=== PATIENT | female | born 1990 | race Caucasian/White ===

== ENCOUNTER 2017-01-06 18:13 | Emergency (ER) | payer BC ==
[2017-01-06] MEDS ORDERED: Ketorolac INJ* 60 MG/2 ML VIAL IM ONE (21:12)
--- NOTE | 2017-01-06 22:07 | ED ---
Headache - HPI Summary HPI Summary: 26 female presents with complaints of headache that has been ongoing for the past couple of months that has worsened over the past week. She has been unable to get relief. States the headache follows "headphone pattern" across her head from side to side. She states it is a pressure that gets worse and sharp at times. She has tried tylenol and ibuprofen without relief. States she has been worked up for headaches and chest pain in the past without any diagnosis. Had a CT scan of her head that showed brain calcifications. She since has had headaches. Has an appointment Friday01/08/17 with her PCP to discuss her headache. She is not on any medications. No PMHx Denies stiff neck, fever/chills , cough, lethargy, and nausea/vomiting. States she sometimes has blurred vision and changes to her hearing. Although she is able to hear and see. Admits to also having memory problems and her emotions changing dramatically and very quickly at times. Denies weakness, slurred speech, drooping of face and fatigue. No recent trauma or head injury. - History Of Current Complaint Chief Complaint: EDHeadache Stated Complaint: HEADACHE Time Seen by Provider: 01/06/17 20:43 Hx Obtained From: Patient Onset/Duration: Gradual Onset, Started weeks ago - months, Still Present, Worse Since - states headache have become more frequent Initially Headache Was: Initial Pain Scale(0-10)= - 7 Timing: Constant Character: Sharp - at times, Pressure, Typical Headache - that she has had for years Location of Headache: Parietal - "following a headphone pattern, like if you were wearing headphones" that sometimes radiates into the frontal and occipatal areas. Aggravating Factor: Nothing Allevating Factors: Rest - sleeping Associated Signs And Symptoms: Visual Changes - "fuzzy at times" - Risk Factors SAH Risk Factors: Negative Meningitis Risk Factors: Negative SDH Risk Factors: Negative Temporal Arteritis Risk Factors: Female, - Allergies/Home Medications Allergies/Adverse Reactions: Allergies Allergy/AdvReac Type Severity Reaction Status Date / Time Acetaminophen [From Percocet] Allergy Vomiting Verified 01/06/17 21:26 Oxycodone [From Percocet] Allergy Vomiting Verified 01/06/17 21:26 Red Dye Allergy Palpitation Verified 01/06/17 21:26 s PMH/Surg Hx/FS Hx/Imm Hx Endocrine/Hematology History: Denies: Hx Diabetes Cardiovascular History: Denies: Hx Hypertension Respiratory History: Denies: Hx Asthma, Hx Chronic Bronchitis Neurological History: Reports: Hx Headaches - Surgical History Surgery Procedure, Year, and Place: none - Immunization History Immunizations Up to Date: Yes Infectious Disease History: No Infectious Disease History: Denies: Traveled Outside the [place] in Last 30 Days - Family History Known Family History: Positive: Hypertension - Social History Alcohol Use: Occasionally Substance Use Type: Reports: None Smoking Status (MU): Light Every Day Tobacco Smoker Review of Systems Constitutional: Negative Positive: Blurred Vision Positive: Other - decreased hearing at times Cardiovascular: Negative Respiratory: Negative Gastrointestinal: Negative Musculoskeletal: Negative Skin: Negative Positive: Headache All Other Systems Reviewed And Are Negative: Yes Physical Exam Triage Information Reviewed: Yes Vital Signs On Initial Exam: Initial Vitals Temp Pulse Resp BP Pulse Ox 98.1 F 85 20 138/82 100 01/06/17 18:16 01/06/17 18:16 01/06/17 18:16 01/06/17 18:16 01/06/17 18:16 Vital Signs Reviewed: Yes Appearance: Positive: Well-Appearing - sitting up in bed, laughing and smiling with boyfriend, No Pain Distress, Well-Nourished Skin: Positive: Warm, Skin Color Reflects Adequate Perfusion, Dry. Negative: Cold, Numb, Cyanosis @ Head/Face: Positive: Normal Head/Face Inspection. Negative: Temporal Artery Tenderness, TMJ Tenderness, Scalp, Cephalohematoma Eyes: Positive: Normal, EOMI, MIKEY, Conjunctiva Clear, Other: - normal visual acuity and fundoscopic exam ENT: Positive: Normal ENT inspection, Hearing grossly normal, Pharynx normal, TMs normal. Negative: Nasal congestion, Tonsillar swelling, Trismus Dental: Negative: Percussion Tenderness @, Cervical Lymphadenopathy Neck: Positive: Supple, Nontender, No Lymphadenopathy. Negative: Nuchal Rigidity - negative kernigs and brudinskis, Tenderness @ Respiratory/Lung Sounds: Positive: Clear to Auscultation, Breath Sounds Present. Negative: Rales, Rhonchi, Wheezes Cardiovascular: Positive: Normal, RRR, Pulses are Symmetrical in both Upper and Lower Extremities Abdomen Description: Positive: Nontender, No Organomegaly, Soft Bowel Sounds: Positive: Present Musculoskeletal: Positive: Normal, Strength/ROM Intact. Negative: Limited @, Interruption @, Abnormal @, Pain @ Neurological: Positive: Normal - memory and concentration intact, Sensory/Motor Intact - sensation intact, Alert, Oriented to Person Place, Time, CN Intact II- III, Reflexes Intact, NV Bundle Intact Distally, Normal Gait, Heel to Toe - normal, Finger to Nose - normal, Facial Symmetry, Speech Normal. Negative: Abnormal Gait, Disoriented, Facial Droop, Slurred Speech Psychiatric: Positive: Normal, Affect/Mood Appropriate - Josue Coma Scale Best Eye Response: 4 - Spontaneous Best Motor Response: 6 - Obeys Commands Best Verbal Response: 5 - Oriented Coma Scale Total: 15 Diagnostics - Vital Signs Vital Signs Temp Pulse Resp BP Pulse Ox 01/06/17 18:19 98.6 F 88 20 138/82 100 01/06/17 18:16 98.1 F 85 20 138/82 100 - Laboratory Lab Statement: Any lab studies that have been ordered have been reviewed, and results considered in the medical decision making process. Re-Evaluation - Re-Evaluation First Eval Re-Evaluation Time: 22:00 Change: Unchanged - patient states the medication did not help her headache however she would like to go home Headache Course/Dx - Course Course Of Treatment: given toradol to help with headache, patient did not have relief however wanted to be d/c. explained and educated on use of CT imagining and how it would not be appropriate to obtain a CT image at this time as her PE findings were normal and due to HPI. Patient has follow up appointment with PCP and possibe neuro referral. Explained imaging may be needed then. No urgent findings requiring CT at this time. No neuro deficits. Patient was educated on worsening signs and symptoms and reminded to attent her PCP. Also requested a work note. Fluids, rest and naproxen was precribed. Recommend benedryl at night when having headaches. - Diagnoses Differential Diagnosis/HQI/PQRI: CVA, TIA, Sinus Headache, Temporal Arteritis, Tension Headache, Viral Syndrome Provider Diagnoses: Headache - Physician Notifications Discussed Care Of Patient With: Dr Mcnulty Discharge - Discharge Plan Condition: Stable Disposition: HOME Prescriptions: Naproxen TAB* [Naprosyn 375 mg TAB*] 375 mg PO BID #25 tab Patient Education Materials: Acute Headache (ED) Forms: *Work Release Referrals: Non Staff,Doctor [Primary Care Provider] - Additional Instructions: Take prescribed medication to help with headache. Drink plenty of fluids and rest. Try taking benedryl at bedtime to help with headache and resting. Follow up with your primary care doctor at your appointment on Friday for further imaging/evaluation. If you develop signs and symptoms of vomiting, worsening head pain, loss of vision or new symptoms please seek medical attention promptly.
[2017-01-06 22:19] VITALS: BP 132/66
== END 2017-01-06 22:16 | disposition home or self-care (01) ==
LOC: ED 18:13
DX: R51 Headache (principal); H53.8 Other visual disturbances; F17.210 Nicotine dependence, cigarettes, uncomplicated
CPT/HCPCS: 96372; 99282; J1885

== ENCOUNTER 2017-11-02 16:16 | Inpatient (IN) | payer BC ==
--- NOTE | 2017-11-02 16:55 | HP ---
General Information - General Information Maternal Age: 27 Grav: 3 Para: 2 SAB: 0 IEA: 0 Estimated Due Date: 11/12/17 Determined By: LMP Gestational Age in Weeks and Days: 38 Weeks and 4 Days Maternal Blood Type and Rh: A Positive - Results this Serology/RPR Result: Non-Reactive Rubella Result: Immune HBsAg Result: Negative HIV Result: Negative GBS Culture Result: Negative Past Medical History Delivery History: Hx Uncomplicated Vaginal Delivery - X2 2009, 2014 Pertinent Past Medical History: Non-Contributory Pertinent Past Surgical History: See Records - bunionectomies Pertinent Family History: Non-Contributory - Antepartal Records Antepartal Records: Reviewed, Complicated by: - Baby was breech @34 weeks, then flipped. Confirmed vertex by sono today. Review of Systems Constitutional: Uncomfortable CV Complaint: No Respiratory: Shortness of Breath: No Gastrointestinal: No Nausea/Vomiting, Normal Bowel Movement Genitourinary: No Dysuria, No Bleeding, No Leaking Fluid Musculoskeletal: Contractions Neurological: No Headache, No Visual Changes Movement: Normal Exam Allergies/Adverse Reactions: Allergies acetaminophen [From Percocet] Allergy (Verified 11/02/17 16:54) Vomiting oxycodone [From Percocet] Allergy (Verified 11/02/17 16:54) Vomiting red dye Allergy (Verified 11/02/17 16:54) Palpitations - Measurements Height: 5 ft 5 in Weight: 211 lb Weight in lbs: 211 Body Mass Index (BMI): 35.1 Pre- Weight: 185 lb Weight Gained This : 26 lbs and 0 ozs - Exam Abdomen: No Upper Quadrant Pain Breast: Breast Exam Deferred Extremities: No Edema Heart: Normal Rhythm/Heart Sounds HEENT: No Significant Findings Lungs: Clear Bilaterally Rectal: Rectal Exam Deferred Reflexes: DTR 2+, - - no clonus - Cervical Exam 7cm/90/-1 vertex, bulging bag - Abdominal Exam Abdomen Exam: Non-Tender, Fundal Height Consistent with Dates Abdomen Exam Comment: EFW 8-8.5lb - Membranes Membrane Status: Intact - Ultrasound/Biophysical Profile Ultrasound Status: Bedside Exam - Confirm vertex EFM Findings - External Monitor Findings Baseline Heart Rate: 135 External Monitor Findings: Accelerations Present, No Pattern of Variable or Late Decelerations, Variability Moderate Contractions: Regular, Strong, 45-90 Seconds
[2017-11-02] MEDS ORDERED: fentaNYL* 50 MCG/ML 2 ML VIAL (100 MCG VIAL) ONE (17:09)
[2017-11-02] MEDS ORDERED: Lidocaine 2% EPI 1:200000 MPF* 20 ML VIAL ONE (17:10)
[2017-11-02 17:28] LABS: Hematocrit 35 % (35-47); Mean Corpuscular HGB Conc 31 g/dl (31-36); Mean Corpuscular Hemoglobin 23 pg (27-31); Mean Corpuscular Volume 74 fL (80-97); Mean Platelet Volume 10 um3 (7.4-10.4); Platelet Count 165 10^3/ul (150-450); Red Blood Count 4.75 10^6/ul (4.0-5.4); Red Cell Distribution Width 16 % (10.5-15); White Blood Count 14.6 10^3/ul (3.5-10.8)
[2017-11-02] MEDS ORDERED: Dibucaine 1% 28.35 GM TUBE PR PRN (17:54)
[2017-11-02] MEDS ORDERED: Witch Hazel PAD* JAR TOPICAL PRN (17:54)
[2017-11-02] MEDS ORDERED: Glycerin ADULT SUPP PR PRN (17:54)
[2017-11-02] MEDS ORDERED: Acetaminophen TAB* 325 MG PO PRN (17:54)
[2017-11-02 18:31] LABS: ABS Basophils 0 10^3/ul (0-0.2); ABS Eosinophils 0.1 10^3/ul (0-0.6); ABS Lymphocytes 2.3 10^3/ul (1.0-4.8); ABS Monocytes 0.9 10^3/ul (0-0.8); ABS Neutrophils 11.3 10^3/ul (1.5-7.7); ABS Nucleated RBC 0 10^3/ul; Eosinophil % 0.4 % (0-6); Lymphocyte % 15.5 % (25-47); Nucleated Red Blood Cells % 0
[2017-11-02] MEDS: Ibuprofen TAB* 600 MG PO PRN (19:05)
[2017-11-02] MEDS ORDERED: Simethicone TAB* 80 MG TAB.CHEW PO SCH (21:00)
[2017-11-02] MEDS ORDERED: Docusate CAP* 100 MG PO SCH (21:00)
[2017-11-03] MEDS: Ibuprofen TAB* 600 MG PO PRN ×2 (03:37→09:16)
[2017-11-03 06:23] LABS: ABS Basophils 0 10^3/ul (0-0.2); ABS Eosinophils 0.1 10^3/ul (0-0.6); ABS Lymphocytes 1.8 10^3/ul (1.0-4.8); ABS Monocytes 0.8 10^3/ul (0-0.8); ABS Neutrophils 7.6 10^3/ul (1.5-7.7); ABS Nucleated RBC 0 10^3/ul; Eosinophil % 0.9 % (0-6); Hematocrit 28 % (35-47); Lymphocyte % 17.2 % (25-47); Mean Corpuscular HGB Conc 32 g/dl (31-36); Mean Corpuscular Hemoglobin 24 pg (27-31); Mean Corpuscular Volume 73 fL (80-97); Mean Platelet Volume 9 um3 (7.4-10.4); Nucleated Red Blood Cells % 0.1; Platelet Count 111 10^3/ul (150-450); Red Blood Count 3.81 10^6/ul (4.0-5.4); Red Cell Distribution Width 16 % (10.5-15); White Blood Count 10.3 10^3/ul (3.5-10.8)
[2017-11-03 08:09] VITALS: BP 127/87
[2017-11-03] MEDS ORDERED: Ferrous Gluconate TAB* 324 MG TAB PO SCH (09:00)
== END 2017-11-03 18:20 | disposition home or self-care (01) | DRG 560 ==
LOC: MCHOBOUT 16:16 → MCHOB 16:37
PROVIDERS: ADMIT Midwife; ATTEND Midwife
PROC: 10E0XZZ Delivery of Products of Conception, External Approach (ICD-10-PCS; principal; 2017-11-02)
PROC: 10907ZC Drainage of Amniotic Fluid, Therapeutic from Products of Conception, Via Natural or Artificial Opening (ICD-10-PCS; 2017-11-02)
DX: O69.81X0 Labor and delivery complicated by cord around neck, without compression, not applicable or unspecified (principal); O99.344 Other mental disorders complicating childbirth; D64.9 Anemia, unspecified; O36.63X0 Maternal care for excessive fetal growth, third trimester, not applicable or unspecified; O70.0 First degree perineal laceration during delivery; O90.81 Anemia of the puerperium; Z3A.38 38 weeks gestation of pregnancy; Z37.0 Single live birth; F41.8 Other specified anxiety disorders; Z88.5 Allergy status to narcotic agent; Z91.048 Other nonmedicinal substance allergy status
CPT/HCPCS: 36415; 85025; 86850; 86900; 86901; A9270-GY; J3010

== ENCOUNTER 2017-12-27 18:32 | Emergency (ER) | payer BC ==
[2017-12-27 18:41] VITALS: BP 135/83
--- NOTE | 2017-12-27 19:27 | UC ---
Complaint Female HPI - HPI Summary HPI Summary: 1) vulvar itching, discharge, raw-feeling consistent with previous yeast infections starting 2 days ago. Used a 1-day monistat treatment yesterday, is feeling improved (but not all the way resolved) today. 2) last night noticed ST and felt hot, temp was in the high 99s. Denies cough or trouble breathing, does have very minimal runny nose. - History Of Current Complaint Chief Complaint: UCGU Stated Complaint: ELEVATED TEMP, IRRITATION GENTIAL AREA Time Seen by Provider: 12/27/17 18:57 Hx Obtained From: Patient Hx Last Menstrual Period: 01/2017 ?: No - 8 weeks PP, Onset/Duration: Gradual Onset, Lasting Days Timing: Constant Severity Initially: Mild Severity Currently: Moderate Pain Intensity: 2 Character: Dull, Burning Aggravating Factor(s): Movement Alleviating Factor(s): Position Associated Signs And Symptoms: Positive: Vaginal Discharge - Allergies/Home Medications Allergies/Adverse Reactions: Allergies Allergy/AdvReac Type Severity Reaction Status Date / Time red dye Allergy Palpitation Verified 12/27/17 18:42 s acetaminophen [From Percocet] AdvReac Vomiting Verified 12/27/17 18:42 oxycodone [From Percocet] AdvReac Vomiting Verified 12/27/17 18:42 PMH/Surg Hx/FS Hx/Imm Hx Previously Healthy: Yes - Surgical History Surgical History: None Surgery Procedure, Year, and Place: none - Family History Known Family History: Positive: Hypertension - Social History Lives: With Family Alcohol Use: None Substance Use Type: None Smoking Status (MU): Never Smoked Tobacco - Immunization History Most Recent Influenza Vaccination: n/a Most Recent Pneumonia Vaccination: n/a Review of Systems Constitutional: Fatigue Skin: Negative Eyes: Negative ENT: Sore Throat, Nasal Discharge Respiratory: Negative Cardiovascular: Negative Gastrointestinal: Negative Genitourinary: Vaginal/Penile Itching, Vaginal/Penile Discharge, Vaginal/Penile Tenderness Motor: Negative Neurovascular: Negative Musculoskeletal: Negative Neurological: Negative Psychological: Negative Is Patient Immunocompromised?: No All Other Systems Reviewed And Are Negative: Yes Physical Exam Triage Information Reviewed: Yes Appearance: Well-Appearing, No Pain Distress, Well-Nourished Vital Signs: Initial Vital Signs Temp 99.1 F 12/27/17 18:38 Pulse 98 05/12/18 18:38 Resp 18 12/27/17 18:38 BP 135/83 12/27/17 18:38 Pulse Ox 100 12/27/17 18:38 Vital Signs Reviewed: Yes Eye Exam: Normal Eyes: Positive: Conjunctiva Clear ENT: Positive: Hearing grossly normal, TMs normal. Negative: Pharynx normal - possible tiny ulcerations on sofe palate?, Pharyngeal erythema Neck exam: Normal Neck: Positive: Supple, Nontender, No Lymphadenopathy Respiratory Exam: Normal Respiratory: Positive: Chest non-tender, Lungs clear, Normal breath sounds, No respiratory distress, No accessory muscle use Cardiovascular Exam: Normal Cardiovascular: Positive: RRR, No Murmur Pelvic Exam: Positive: Discharge - yellow, thick, Lesions - fissures, erosions on inflamed external vulva. No ulcerations, Other - speculum exam not performed due to pt discomfort. Negative: External Exam Normal Neurological Exam: Normal Neurological: Positive: Alert Psychological Exam: Normal Skin Exam: Normal Complaint Female Dx - Differential Dx/Diagnosis Provider Diagnoses: yeast vulvovaginitis. sore throat, likely viral Discharge - Sign-Out/Discharge Documenting (check all that apply): Discharge/Admit/Transfer - Discharge Plan Condition: Stable Disposition: HOME Prescriptions: Fluconazole 150 MG (NF) [Diflucan 150 mg (NF)] 150 mg PO ONCE #1 tab Patient Education Materials: Yeast Infection (ED), Upper Respiratory Infection (ED) Referrals: No Primary Care Phys,NOPCP [Primary Care Provider] - Additional Instructions: Testing pending. You can take a 3-day topical (vaginal cream or suppositories) course of antifuncal medicine as well as this pill. Your sore throat and viral symptoms should resolve on their own. Sometimes it is only mild symptoms for a few days, sometimes it can take 2-3 weeks to fully work through. If you develop prolonged fever, severe pain, or trouble breathing , get rechecked again right away. - Billing Disposition and Condition Condition: STABLE Disposition: HOME
--- NOTE | 2017-12-29 15:22 | UC ---
- Progress Note Progress Note: Culture with positive gardnerlla - Flagyl 500mg BID for 1 week sent Discharge - Sign-Out/Discharge Documenting (check all that apply): Post-Discharge Follow Up - Discharge Plan Condition: Stable Disposition: HOME Prescriptions: Fluconazole 150 MG (NF) [Diflucan 150 mg (NF)] 150 mg PO ONCE #1 tab metroNIDAZOLE [Flagyl] 500 mg PO BID #14 tablet Patient Education Materials: Upper Respiratory Infection (ED), Yeast Infection (ED) Referrals: No Primary Care Phys,NOPCP [Primary Care Provider] - Additional Instructions: Testing pending. You can take a 3-day topical (vaginal cream or suppositories) course of antifuncal medicine as well as this pill. Your sore throat and viral symptoms should resolve on their own. Sometimes it is only mild symptoms for a few days, sometimes it can take 2-3 weeks to fully work through. If you develop prolonged fever, severe pain, or trouble breathing , get rechecked again right away. - Billing Disposition and Condition Condition: STABLE Disposition: HOME
== END 2017-12-27 19:38 | disposition home or self-care (01) ==
LOC: UCEAST 18:32
DX: B37.3 Candidiasis of vulva and vagina (principal); J02.9 Acute pharyngitis, unspecified; R53.83 Other fatigue; R09.81 Nasal congestion; Z88.6 Allergy status to analgesic agent; Z88.5 Allergy status to narcotic agent
CPT/HCPCS: 87480; 87491; 87510; 87591; 87651; 87660; 99212; G0463

== ENCOUNTER 2018-02-20 08:54 | Day surgery (SDC) | payer BC ==
[~2018-02-20 08:54] MED LIST: Buffered Lidocaine 0.9% SYRIN* 5 ML/SYR SYRINGE INTRADERM ONE
[2018-02-20 09:41] LABS: ABS Basophils 0 10^3/ul (0-0.2); ABS Eosinophils 0.1 10^3/ul (0-0.6); ABS Lymphocytes 1.7 10^3/ul (1.0-4.8); ABS Monocytes 0.3 10^3/ul (0-0.8); ABS Neutrophils 2.3 10^3/ul (1.5-7.7); ABS Nucleated RBC 0 10^3/ul; Eosinophil % 2.3 % (0-6); Hematocrit 39 % (35-47); Hemoglobin 12.8 g/dl (12.0-16.0); Lymphocyte % 38.5 % (25-47); Mean Corpuscular HGB Conc 33 g/dl (31-36); Mean Corpuscular Hemoglobin 25 pg (27-31); Mean Corpuscular Volume 77 fL (80-97); Mean Platelet Volume 8.9 um3 (7.4-10.4); Nucleated Red Blood Cells % 0.1; Platelet Count 174 10^3/ul (150-450); Red Blood Count 5.07 10^6/ul (4.00-5.40); Red Cell Distribution Width 14 % (10.5-15); White Blood Count 4.4 10^3/ul (3.5-10.8)
[2018-02-20] MEDS ORDERED: Lidocaine 2% PF * 5 ML VIAL ONE (10:47)
[2018-02-20] MEDS ORDERED: Propofol* 10 MG/ML 20 ML BTL IV PUSH ONE (10:47)
[2018-02-20] MEDS ORDERED: Bupivacaine 0.25% W/EPI* 10 ML SDV ONE (11:03)
[2018-02-20] MEDS ORDERED: Midazolam* 1 MG/ML 2 ML VIAL (2 MG) ONE (11:08)
[2018-02-20] MEDS ORDERED: fentaNYL* 50 MCG/ML 5 ML VIAL (250 MCG VIAL) ONE (11:08)
[2018-02-20] MEDS ORDERED: Scopolamine 1.5 mg* PATCH ONE (11:12)
[2018-02-20] MEDS ORDERED: DiMENhydriNATE IV* 50 MG/ML VIAL IV PUSH PRN (11:39)
[2018-02-20] MEDS ORDERED: Naloxone* 0.4 MG/ML 1 ML VIAL IV PRN (11:39)
[2018-02-20] MEDS ORDERED: Ondansetron INJ* 2 MG/ML VIAL ONE (11:40)
[2018-02-20] MEDS ORDERED: Ketorolac INJ* 30 MG/ML 1 ML VIAL ONE (11:40)
[2018-02-20] MEDS ORDERED: Dexamethasone IV* 4 MG/ML 1 ML (4 MG) ONE (11:40)
[2018-02-20] MEDS ORDERED: Bupivacaine 0.5% PF 10 ML VIAL INJ ONE (11:46)
[2018-02-20] MEDS ORDERED: Succinylcholine* 20 MG/ML 10 ML VIAL ONE (12:08)
[2018-02-20] MEDS ORDERED: Glycopyrrolate IV* 0.2 MG/ML 1 ML VIAL ONE (12:10)
[2018-02-20] MEDS ORDERED: fentaNYL* 50 MCG/ML 2 ML VIAL (100 MCG VIAL) ONE ×3 (12:43→13:10)
[2018-02-20] MEDS: fentaNYL* 50 MCG/ML 2 ML VIAL (100 MCG VIAL) IV PRN ×5 (12:44→13:11)
[2018-02-20] MEDS ORDERED: Acetaminophen TAB* 325 MG ONE (13:02)
[2018-02-20] MEDS ORDERED: HYDROmorphone INJ* 0.5 MG/0.5 ML SYRINGE ONE (13:26)
[2018-02-20 14:03] VITALS: BP 115/73
--- NOTE | 2018-02-21 04:13 | OP ---
OPERATIVE REPORT: DATE OF OPERATION: 02/20/18 DATE OF : 89 SURGEON: Joss Longoria MD ANESTHESIOLOGIST: Dr. Dixon. ANESTHESIA: General. PRE-OP DIAGNOSIS: Satisfied parity. POST-OP DIAGNOSIS: Satisfied parity. OPERATIVE PROCEDURE: Laparoscopic bilateral tubal ligation with bipolar. ESTIMATED BLOOD LOSS: Minimal. URINE OUTPUT: 200 cc. IV FLUIDS: 1000 cc lactated Ringer's. MATERIAL TO LABS: None. INDICATIONS: This patient was a 27-year-old 3, para 3, recently , who desired permanent sterilization. She was extensively counseled regarding her options and she desired to proceed with a tubal ligation. She was extensively counseled and consent was signed. FINDINGS: Normal appearing tubes and ovaries. Uterus was slightly irregularly shaped, likely from small fibroids. COMPLICATIONS: None. DESCRIPTION OF THE PROCEDURE: The risks, benefits, and alternatives were described to the patient, and informed consent was obtained. The patient was taken to the operating room with IV running where general anesthesia was induced and found to be adequate. The patient was prepped and draped in normal- sterile fashion in the low lithotomy position in [facility]. A time-out was performed. The bladder was emptied. A bivalve speculum was placed in the vagina and a Hulka tenaculum was placed through the cervix into the uterus. The speculum was then removed. Attention was then turned to the abdomen. 0.5% Marcaine was then injected into the skin of the umbilicus as well as 2-cm above the pubic symphysis. A 5 mm skin incision was made with a scalpel in the umbilicus. A 5mm bladeless trocar was then inserted through the incision and into the peritoneal cavity without difficulty. The skin was elevated using penetrating towel clamps. Once the trocar was in the abdominal cavity, the abdomen was insufflated with carbon dioxide gas to a maximum pressure of 15 mmHg. Using the camera, the area below the trocar placement was carefully inspected and there was no evidence of trauma or bleeding. The patient was placed in Trendelenburg position. A second 5mm incision was placed 2 cm above the pubic symphysis in a transverse fashion. A 5-mm blunt trocar was placed through this incision and into the abdominal cavity without difficulty. Using the Hulka tenaculum for manipulation, the uterus was elevated and well visualized. The structures appeared normal. A bipolar Kleppinger device was prepared and then used to thoroughly coagulate several segments of both tubes. A meter was used to ensure full coagulation was confirmed. The case was then completed. The trocars were removed from the abdomen and the gas was allowed to escape. The skin was reapproximated using 4- 0 Monocryl in a subcuticular stitch, and the incisions were then overlaid with Dermabond skin adhesive. The tenaculum was then removed from the cervix as well , and there was only light bleeding from the vagina at that time. The patient was returned to the supine position and allowed to awaken. The patient tolerated the procedure well. Sponge, lap, and needle counts were correct x2. [id number]/[facility] #: [id number] MTDD
== END 2018-02-20 14:37 | disposition home or self-care (01) ==
LOC: OR 08:54
PROVIDERS: ATTEND Obstetrics & Gynecology
DX: Z30.2 Encounter for sterilization (principal); F41.8 Other specified anxiety disorders; Z87.891 Personal history of nicotine dependence
CPT/HCPCS: 36415; 81025; 85025; 86850; 86900; 86901; A9270-GY; J0330; J1100; J1170; J1885; J2250; J2405; J2704; J3010

== ENCOUNTER 2018-11-13 09:02 | Day surgery (SDC) | payer BC ==
--- NOTE | 2018-10-30 07:02 | HP ---
HISTORY AND PHYSICAL: DATE OF ADMISSION/SURGERY: 11/13/18 DATE OF OFFICE VISIT: 10/29/18 SURGEON: Stella Demarco MD * (DICTATED BY ERNESTINA GOTTLIEB) PROCEDURE: Left wrist ganglion cyst excision. CHIEF COMPLAINT: Left wrist pain. HISTORY OF PRESENT ILLNESS: Lashay is a 28-year-old female with a ganglion cyst of her left dorsal wrist. She has elected to have this removed. PAST MEDICAL HISTORY: Denies. PAST SURGICAL HISTORY: Right bunionectomy and tubal ligation. CURRENT MEDICATIONS: None. ALLERGIES: PERCOCET causes vomiting and RED DYE. FAMILY HISTORY: Diabetes and cancer. SOCIAL HISTORY: She is a 28-year-old female. She lives with her fiance and children. She occasionally smokes approximately half-a-pack a week and denies use of drugs or alcohol. REVIEW OF SYSTEMS: A complete 14-point review of systems was reviewed with the patient. It was all negative or noncontributory. She denies history of DVT, PE , hepatitis, HIV, or anesthesia problems. PHYSICAL EXAMINATION GENERAL: She is well developed, well nourished, in no acute distress. VITAL SIGNS: She stands 66 inches tall, weighs 220 pounds. Her blood pressure is 122/78 and her heart rate is 76. HEENT: Normocephalic, atraumatic. NECK: Supple. No palpable lymph nodes. PULMONARY: The lungs are clear to auscultation bilaterally. CARDIO: Regular rate and rhythm. Strong S1, S2. ABDOMEN: Soft, nontender, nondistended. NEUROLOGICAL: She is alert and oriented x3. MUSCULOSKELETAL: Left upper extremity: The skin is intact. There are no open wounds or abrasions. There is a palpable dorsal wrist ganglion cyst, which is mildly tender to palpation. She has full range of motion of the left wrist. She has a 2+ palpable pulse and intact sensation. ASSESSMENT AND PLAN: Lashay is a 28-year-old female with a ganglion cyst of the left dorsal wrist. She has elected to have an excision of the left wrist ganglion cyst. The surgery is scheduled for 11/13/[address] Demarco discussed the risks and benefits of the surgery at today's visit and all of her questions were answered. She will follow up with Dr. Demarco 7 to 10 days after the surgery. ERNESTINA GOTTLIEB [id number]/[facility] #: [id number] LIZZIE
[~2018-11-13 09:02] MED LIST changes: -Buffered Lidocaine 0.9% SYRIN* 5 ML/SYR SYRINGE INTRADERM ONE; +Buffered Lidocaine 1% SYRIN* 1 ML/SYRINGE INTRADERM ONE; +Lactated Ringers 1000 ML Bag* 1,000 ML IV SCH; +Lidocaine 1% INJ* 10 MG/ML 30 ML SDV ONE
[2018-11-13] MEDS ORDERED: fentaNYL* 50 MCG/ML 2 ML VIAL (100 MCG VIAL) ONE (10:52)
[2018-11-13] MEDS ORDERED: Midazolam* 1 MG/ML 2 ML VIAL (2 MG) ONE (10:52)
[2018-11-13] MEDS ORDERED: Acetaminophen TAB* 325 MG PO PRN (11:28)
[2018-11-13] MEDS ORDERED: Naloxone* 0.4 MG/ML 1 ML VIAL IV PRN (11:28)
[2018-11-13] MEDS ORDERED: fentaNYL* 50 MCG/ML 2 ML VIAL (100 MCG VIAL) IV PRN (11:28)
[2018-11-13] MEDS ORDERED: Levalbuterol 0.63MG/3ML NEB* UNIT OF USE INH PRN (11:28)
[2018-11-13] MEDS ORDERED: Ondansetron INJ* 2 MG/ML VIAL IV PRN (11:28)
[2018-11-13] MEDS ORDERED: DiMENhydriNATE IV* 50 MG/ML VIAL IV PUSH PRN (11:28)
[2018-11-13] MEDS ORDERED: Ketorolac INJ* 30 MG/ML 1 ML VIAL ONE (11:32)
[2018-11-13] MEDS ORDERED: Propofol* 10 MG/ML 20 ML BTL ONE (11:32)
[2018-11-13] MEDS ORDERED: Lidocaine 2% PF * 5 ML VIAL ONE (11:32)
[2018-11-13 12:00] VITALS: BP 113/67
--- NOTE | 2018-11-13 14:02 | OP ---
DATE OF OPERATION: 11/13/18 [facility] DATE OF : [birth year] SURGEON: Stella Demarco MD DINING ROOM BUSSER: ERNESTINA Estevez ANESTHESIA: Local MAC. PRE-OP DIAGNOSIS: Left dorsal wrist ganglion. POST-OP DIAGNOSIS: Left dorsal wrist ganglion. OPERATIVE PROCEDURE: Removal of left dorsal wrist ganglion. ESTIMATED BLOOD LOSS: Zero. TOURNIQUET TIME: Approximately 15 minutes. INDICATIONS FOR PROCEDURE: Lashay is a 28-year-old female who has a painful mass on the dorsal aspect of her left wrist. She presents for removal. DESCRIPTION OF PROCEDURE: The patient was brought to the operating room, was given a sedation anesthetic and a local infiltration of 10 cc of 1% plain lidocaine overlying the left dorsal wrist mass. The skin of her left hand and forearm was prepped and draped in the usual sterile fashion. The hand and forearm were exsanguinated and the tourniquet elevated to 250 mmHg. A transverse incision was made centered over the mass. We dissected through the subcutaneous tissue. There was some tenosynovitis surrounding the extensor tendons and this was debrided. The tendons were then retracted revealing a broad-based cystic mass overlying the scapholunate ligament of the wrist joint. The mass and a portion of the wrist joint capsule were removed and then the edges of the capsule and the dorsal aspect of the scapholunate ligament were cauterized with the Bovie. The wound was irrigated and the skin edges were reapproximated with 4-0 nylon suture. The wound was dressed with Xeroform, 4x4 , Webril, and an Tru wrap. The patient tolerated the procedure well and was brought to the recovery room in good condition. [id number]/[facility] #: [id number] [facility]
== END 2018-11-13 12:45 | disposition home or self-care (01) ==
LOC: OREAST 09:02 → MERGE 11:15 → OREAST 12:45
PROVIDERS: ATTEND Orthopaedic Surgery
DX: M67.432 Ganglion, left wrist (principal); Z72.0 Tobacco use; F41.8 Other specified anxiety disorders; J45.909 Unspecified asthma, uncomplicated; Z68.35 Body mass index [BMI] 35.0-35.9, adult
CPT/HCPCS: 88304; J1885; J2250; J2704; J3010

== ENCOUNTER 2019-02-01 15:02 | Emergency (ER) | payer BC ==
[2019-02-01 15:14] VITALS: BP 136/79
--- NOTE | 2019-02-01 15:15 | UC ---
Respiratory Complaint HPI - HPI Summary HPI Summary: 28 yo female presents with cough for 1 week. She tells me that her cough started as a dry cough about 1 week ago, but has progressed into a productive cough and she feels that her chest is congested. She also mentions that her 1yo son was diagnosed with PNA about a week ago and she is concerned that she may have it. She has not been taking anything OTC for her symptoms. She is smoking daily. She denies fever, chills, sinus symptoms, sore throat, SOB, chest pain. - History of Current Complaint Chief Complaint: UCGeneralIllness Stated Complaint: COUGH Time Seen by Provider: 02/01/19 15:15 Hx Obtained From: Patient Hx Last Menstrual Period: 01/29/19 Onset/Duration: Gradual Onset Pain Intensity: 0 Pain Scale Used: 0-10 Numeric Character: Cough: Productive - Allergies/Home Medications Allergies/Adverse Reactions: Allergies Allergy/AdvReac Type Severity Reaction Status Date / Time red dye Allergy Intermediate Palpitation Verified 02/01/19 15:14 s acetaminophen [From Percocet] AdvReac Severe Vomiting Verified 02/01/19 15:14 oxycodone [From Percocet] AdvReac Severe Vomiting Verified 02/01/19 15:14 Home Medications: Home Medications Loperamide HCl [Imodium A-D] 2 tab PO ONCE PRN 02/01/19 [History Confirmed 02/01] PMH/Surg Hx/FS Hx/Imm Hx - Additional Past Medical History Additional PMH: None - Surgical History Surgical History: Yes Surgery Procedure, Year, and Place: [place] [facility] [place] [facility] ganglion cyst removed 2019 - Family History Known Family History: Positive: Hypertension - Social History Occupation: Employed Full-time Lives: With Family Alcohol Use: None Substance Use Type: None Smoking Status (MU): Light Every Day Tobacco Smoker Amount Used/How Often: smoked for 1 year 5-6 cigarettes a day When Did the Patient Quit Smoking/Using Tobacco: 2017 - Immunization History Most Recent Influenza Vaccination: n/a Most Recent Pneumonia Vaccination: n/a Review of Systems All Other Systems Reviewed And Are Negative: Yes Constitutional: Positive: Negative Skin: Positive: Negative Eyes: Positive: Negative ENT: Positive: Negative Respiratory: Positive: Cough Cardiovascular: Positive: Negative Gastrointestinal: Positive: Negative Neurovascular: Positive: Negative Neurological: Positive: Negative Psychological: Positive: Negative Physical Exam - Summary Physical Exam Summary: GENERAL: NAD. WDWN. No pain distress. SKIN: No rashes, sores, lesions, or open wounds. HEENT: Head: AT/NC Eyes: EOM intact. Conjunctiva clear without inflammation or discharge. Ears: Hearing grossly normal. TMs intact, no bulging, erythema, or edema. Nose: Nasal mucosa pink and moist. NTTP maxillary and frontal sinus. Throat: Posterior oropharynx without exudates, erythema, or tonsillar enlargement. Uvula midline. NECK: Supple. Nontender. No lymphadenopathy. CHEST: CTAB. No r/r/w. No accessory muscle use. Breathing comfortably and in no distress. CV: RRR. Without m/r/g. Pulses intact. Cap refill <2seconds NEURO: Alert. PSYCH: Age appropriate behavior. Triage Information Reviewed: Yes Vital Signs: Initial Vital Signs Temp 98.5 F 02/01/19 15:10 Pulse 93 02/01/19 15:10 Resp 18 02/01/19 15:10 BP 136/79 02/01/19 15:10 Pulse Ox 99 02/01/19 15:10 Vital Signs Reviewed: Yes Respiratory Course/Dx - Course Course Of Treatment: CXR: IMPRESSION: #. No evidence for acute intrathoracic disease. Given her exposure to PNA and worsening symptoms - will rx for anbx at this time. Advised to take mucinex OTC in addition to anbx and f/u if symptoms do not improve within 1 week. - Differential Dx/Diagnosis Provider Diagnosis: Bronchitis Discharge - Sign-Out/Discharge Documenting (check all that apply): Patient Departure All imaging exams completed and their final reports reviewed: Yes - Discharge Plan Condition: Stable Disposition: HOME Prescriptions: Azithromycin TAB* [Zithromax TAB (Z-WEI) 250 mg #6 tabs] 2 tab PO .TODAY, THEN 1 DAILY #1 wei Benzonatate CAP* [Tessalon 100 MG CAP*] 100 mg PO TID PRN #21 cap PRN Reason: Cough Patient Education Materials: Acute Bronchitis (ED) Referrals: No Primary Care Phys,NOPCP [Primary Care Provider] - Additional Instructions: If you develop a fever, shortness of breath, chest pain, new or worsening symptoms - please call your PCP or go to the ED immediately. Try taking [id number] Mucinex in addition to the antibiotic to help relieve chest congestion. - Billing Disposition and Condition Condition: STABLE Disposition: Home - Attestation Statements Provider Attestation: I was available for consult. This patient was seen by the VITO. The patient was not presented to, seen by, or examined by me. -Yun
== END 2019-02-01 15:53 | disposition home or self-care (01) ==
LOC: UCEAST 15:02
DX: J40 Bronchitis, not specified as acute or chronic (principal); F17.210 Nicotine dependence, cigarettes, uncomplicated
CPT/HCPCS: 71046; 99212; G0463

== ENCOUNTER → 2019-03-18 18:14 | Emergency (ER) | payer BC, MEDICAID, OTHER ==
--- NOTE | 2019-03-18 19:30 | ED ---
Lower Extremity - HPI Summary HPI Summary: Patient complains of left anterior montalvo pain 2 weeks and left knee pain 1 week. Left montalvo pain described as intermittent. Left knee pain described as constant. Denies initial trauma. Pain worse with going upstairs and standing from seated position. Pain at worst 7/10. Currently 4/10. Patient is ambulatory. Denies fever, cough, sore throat, CV, SOB, N/V/D, abdominal pain, change in urine, change in BM. Medical history is none. - History of Current Complaint Chief Complaint: EDExtremityLower Stated Complaint: LT KNEE PAIN PER PT Time Seen by Provider: 03/18/19 18:59 Hx Obtained From: Patient Hx Last Menstrual Period: 01/29/19 Mechanism Of Injury: Unknown Onset of Pain: Days Onset/Duration: Weeks Severity Initially: Mild Severity Currently: Moderate Pain Intensity: 4 Pain Scale Used: 0-10 Numeric Timing: Constant, Intermittent Location: Is Discrete @ Character Of Pain: Dull, Aching, Throbbing Associated Signs And Symptoms: Positive: Negative Aggravating Factor(s): Standing Alleviating Factor(s): Rest Able to Bear Weight: Yes - Allergies/Home Medications Allergies/Adverse Reactions: Allergies Allergy/AdvReac Type Severity Reaction Status Date / Time red dye Allergy Intermediate Palpitation Verified 03/18/19 18:40 s oxycodone [From Percocet] AdvReac Severe Vomiting Verified 03/18/19 18:40 PMH/Surg Hx/FS Hx/Imm Hx Endocrine/Hematology History: Reports: Hx Anemia Denies: Hx Diabetes Cardiovascular History: Denies: Hx Hypertension, Other Cardiovascular Problems/Disorders Respiratory History: Reports: Hx Asthma - no issues for manty years Denies: Hx Chronic Bronchitis, Other Respiratory Problems/Disorders GI History: Denies: Other GI Disorders History: Denies: Hx Dialysis Sensory History: Reports: Hx Contacts or Glasses - glasses Denies: Hx Hearing Aid Opthamlomology History: Reports: Hx Contacts or Glasses - glasses EENT History: Denies: Hx Deafness Neurological History: Reports: Hx Headaches Denies: Other Neuro Impairments/Disorders Psychiatric History: Reports: Hx Anxiety - no meds, Hx Depression - no meds - Cancer History Hx Chemotherapy: No - Surgical History Surgery Procedure, Year, and Place: tubal ligation, [place], [facility] [place] , [facility]. ganglion cyst removed 2019 Hx Anesthesia Reactions: No Infectious Disease History: No Infectious Disease History: Denies: Traveled Outside the [place] in Last 30 Days - Family History Known Family History: Positive: Hypertension - Social History Alcohol Use: Occasionally Substance Use Type: Reports: None Smoking Status (MU): Light Every Day Tobacco Smoker Amount Used/How Often: smoked for 1 year 5-6 cigarettes a day Review of Systems Constitutional: Negative Eyes: Negative ENT: Negative Cardiovascular: Negative Respiratory: Negative Gastrointestinal: Negative Genitourinary: Negative Musculoskeletal: Other Skin: Negative Neurological: Negative Psychological: Normal All Other Systems Reviewed And Are Negative: Yes Physical Exam - Summary Physical Exam Summary: No ecchymosis, erythema, deformity, swelling noted to left lower extremity. Full range of motion of left ankle, left knee and left hip. Calf soft Nontender. PMS intact distally. Mild pain with palpation of knee and left anterior montalvo. Triage Information Reviewed: Yes Vital Signs On Initial Exam: Initial Vitals Temp Pulse Resp BP Pulse Ox 98.1 F 86 18 155/96 100 03/18/19 18:17 03/18/19 18:17 03/18/19 18:17 03/18/19 18:17 03/18/19 18:17 Vital Signs Reviewed: Yes Appearance: Positive: Well-Appearing Skin: Positive: Warm Head/Face: Positive: Normal Head/Face Inspection Eyes: Positive: Normal Neck: Positive: Supple Respiratory/Lung Sounds: Positive: Clear to Auscultation Cardiovascular: Positive: Normal Abdomen Description: Positive: Nontender Musculoskeletal: Positive: Normal Neurological: Positive: Normal Psychiatric: Positive: Normal AVPU Assessment: Alert - [place] Coma Scale Best Eye Response: 4 - Spontaneous Best Motor Response: 6 - Obeys Commands Best Verbal Response: 5 - Oriented Coma Scale Total: 15 Diagnostics - Vital Signs Vital Signs Temp Pulse Resp BP Pulse Ox 03/18/19 18:17 98.1 F 86 18 155/96 100 - Laboratory Lab Statement: Any lab studies that have been ordered have been reviewed, and results considered in the medical decision making process. Lower Extremity Course/Dx - Course Course Of Treatment: Patient complains of left anterior montalvo pain 2 weeks and left knee pain 1 week. Left montalvo pain described as intermittent. Left knee pain described as constant. Denies initial trauma. Pain worse with going upstairs and standing from seated position. Pain at worst 7/10. Currently 4/ 10. Patient is ambulatory. Denies fever, cough, sore throat, CV, SOB, N/V/D, abdominal pain, change in urine, change in BM. Medical history is none. Vital signs within normal limits. X-ray of left tib-fib and left knee negative for fracture. Advised rest, elevation, ice and ibuprofen. Follow-up with orthopedics in a week if symptoms persist. - Diagnoses Provider Diagnoses: Pain in left montalvo, Knee pain, acute Discharge - Sign-Out/Discharge Documenting (check all that apply): Patient Departure Patient Received Moderate/Deep Sedation with Procedure: No - Discharge Plan Condition: Stable Disposition: HOME Patient Education Materials: Montalvo Splints (ED), Knee Pain (ED) Referrals: No Primary Care Phys,NOPCP [Primary Care Provider] - Reinaldo Baker MD [Medical Doctor] - Additional Instructions: Rest, ice 15 minutes at a time, and ibuprofen 600 mg every 6 hours for 3 days. If symptoms continue for more than 1 week follow-up with orthopedics Dr. Baker for further evaluation. - Billing Disposition and Condition Condition: STABLE Disposition: Home
[2019-03-18 20:15] VITALS: BP 148/89
== END | disposition home or self-care (01) ==
LOC: ED 18:14
DX: M79.662 Pain in left lower leg (principal); M25.562 Pain in left knee; Z88.5 Allergy status to narcotic agent; D64.9 Anemia, unspecified; F17.210 Nicotine dependence, cigarettes, uncomplicated
CPT/HCPCS: 99281